=== PATIENT | male | born 1960 | race Two or more races ===

== ENCOUNTER 2018-02-20 10:31 | Outpatient (CLI) | payer OTHER ==
[~2018-02-20 10:31] MED LIST: COLESTID1 G; [UNRECOGNIZED DRUG - OTHER]; [UNRECOGNIZED DRUG - OTHER]; [UNRECOGNIZED DRUG - REMARK]
== END 2018-02-20 10:40 | disposition home or self-care (01) ==
LOC: MRI 10:31
DX: D37.5 Neoplasm of uncertain behavior of rectum (principal); R19.4 Change in bowel habit; R19.5 Other fecal abnormalities; K80.11 Calculus of gallbladder with chronic cholecystitis with obstruction
CPT/HCPCS: 72197

== ENCOUNTER 2018-03-15 05:35 | Day surgery (SDC) | payer OTHER ==
[2018-03-15] MEDS ORDERED: PERCOCET 5-3251 EACH PO (08:52)
[2018-03-15] MEDS ORDERED: DIBUCAINE30 GM TOP (08:53)
== END 2018-03-15 17:05 | disposition home or self-care (01) ==
LOC: CIR.AMB 05:35
DX: D01.2 Carcinoma in situ of rectum (principal)

== ENCOUNTER 2018-07-26 07:15 | Outpatient (CLI) | payer OTHER ==
[~2018-07-26 07:15] MED LIST changes: +DIBUCAINE30 GM TOP; +PERCOCET 5-3251 EACH PO
== END 2018-07-26 07:28 | disposition home or self-care (01) ==
LOC: LAB 07:15
DX: D37.5 Neoplasm of uncertain behavior of rectum (principal); R19.4 Change in bowel habit; R19.5 Other fecal abnormalities; K50.118 Crohn's disease of large intestine with other complication; D01.2 Carcinoma in situ of rectum

== ENCOUNTER 2018-07-26 07:47 | Outpatient (CLI) | payer OTHER | END 2018-07-26 08:05 | disposition home or self-care (01) | LOC: RAD 07:47 | DX: D37.5 Neoplasm of uncertain behavior of rectum (principal); R19.4 Change in bowel habit; R19.5 Other fecal abnormalities; K50.118 Crohn's disease of large intestine with other complication; D01.2 Carcinoma in situ of rectum ==

== ENCOUNTER 2018-08-22 08:15 | Inpatient (IN) | payer OTHER ==
[~2018-08-22] VITALS: Ht 180.3 cm; Wt 72.6 kg
[2018-08-22] MEDS ORDERED: PAXIL PO (10:20)
[2018-08-22] MEDS ORDERED: PROSOM PO (10:21)
[2018-08-22] MEDS ORDERED: XANAX0.25 MG PO (10:21)
[2018-08-31] MEDS ORDERED: PERCOCET 5-3251 EACH PO (07:48)
[2018-08-31] MEDS ORDERED: HYOSCYAMINE0.125 M1 SL (07:48)
[2018-08-31] MEDS ORDERED: IMODIUM A-D2 M2 PO (07:48)
[2018-08-31] MEDS ORDERED: PROTONIX40 MG PO (07:49)
[2018-08-31] MEDS ORDERED: Intestinex CAP PO (07:49)
== END 2018-08-31 17:00 | disposition home or self-care (01) | DRG 330 ==
LOC: ADM 08:15 → EDSTATUS 08:15 → SURH 08-27 07:00 → O/R 08-27 09:48 → SURH 08-27 09:48
PROVIDERS: Urology; ADMIT Surgery
PROC: 0DTQ0ZZ Resection of Anus, Open Approach (ICD-10-PCS; 2018-08-27)
PROC: 07TC0ZZ Resection of Pelvis Lymphatic, Open Approach (ICD-10-PCS; 2018-08-27)
PROC: 0D1B0Z4 Bypass Ileum to Cutaneous, Open Approach (ICD-10-PCS; 2018-08-27)
PROC: 0DJD8ZZ Inspection of Lower Intestinal Tract, Via Natural or Artificial Opening Endoscopic (ICD-10-PCS; 2018-08-27)
PROC: 0DTN0ZZ Resection of Sigmoid Colon, Open Approach (ICD-10-PCS; principal; 2018-08-27 07:00)
PROC: 0DTP0ZZ Resection of Rectum, Open Approach (ICD-10-PCS; 2018-08-27 07:00)
DX: C20 Malignant neoplasm of rectum (principal); N39.0 Urinary tract infection, site not specified; R31.0 Gross hematuria; J06.9 Acute upper respiratory infection, unspecified; G80.8 Other cerebral palsy

== ENCOUNTER 2018-09-11 09:54 | Emergency (ER) | payer OTHER ==
[~2018-09-11] VITALS: Ht 182.9 cm; Wt 72.6 kg
[~2018-09-11 09:54] MED LIST changes: +HYOSCYAMINE0.125 M1 SL; +IMODIUM A-D2 M2 PO; +Intestinex CAP PO; +PAXIL PO; +PROSOM PO; +PROTONIX40 MG PO; +XANAX0.25 MG PO
[2018-09-11] MEDS ORDERED: PAXIL20 MG PO (10:17)
[2018-09-11] MEDS ORDERED: ESTAZOLAM2 MG (10:17)
== END 2018-09-11 17:05 | disposition home or self-care (01) ==
LOC: ER 09:54
DX: R53.1 Weakness (principal)

== ENCOUNTER 2019-02-19 09:04 | Outpatient (CLI) | payer OTHER ==
[~2019-02-19 09:04] MED LIST changes: +ESTAZOLAM2 MG; +PAXIL20 MG PO
== END 2019-02-19 13:04 | disposition home or self-care (01) ==
LOC: SONOGRAMA 09:04
DX: C20 Malignant neoplasm of rectum (principal); R94.5 Abnormal results of liver function studies

== ENCOUNTER 2023-06-30 05:15 | Day surgery (SDC) | payer OTHER ==
[2023-06-23 11:57] LABS: URINE APPEARANCE Clear; URINE BILIRRUBIN Negative (NEGATIVE); URINE BLOOD Negative; URINE COLOR Yellow; URINE GLUCOSE Negative (NEGATIVE); URINE LEUKOCYTE Negative; URINE NITRATE Negative; URINE PROTEIN 30 (NEGATIVE)
[2023-06-23 12:00] LABS: URINE BACTERIA 11.3 uL (0.0-1933); URINE RBC 6.4 uL (0.0-20.8)
[2023-06-23 12:24] LABS: HEMATOCRIT 39.5 % (39.0-48.0); MEAN CELL VOLUME 92.1 fL (80.0-100.00); MEAN CORPUSCULAR HEMOGLOBIN 32.6 pg (27.00-32.0); MEAN CORPUSCULAR HGB CONC 35.4 g/dl (32.0-36.0); PLATELET COUNT 193 K/uL (150-450); RED BLOOD COUNT 4.29 M/uL (4.00-6.00); RED CELL DISTRIBUTION WIDTH 14.2 % (11.5-14.5)
[2023-06-23 12:33] LABS: URINE EPITHELIAL CELLS 1.3 uL (0.0-38.8)
[2023-06-23 12:48] LABS: INR 0.98; PARTIAL THROMBOPLASTIN TIME 27.1 SECONDS (22.0-34.0); PROTHROMBIN TIME 10.3 SECONDS (9.0-11.5)
[2023-06-23 12:51] LABS: CALCIUM 9.1 mg/dL (8.5-10.1); CREATININE SERUM 0.88 mg/dL (0.70-1.30); GFR 88.33; POTASSIUM 4.7 mEq/L (3.5-5.1)
[~2023-06-30] VITALS: Ht 180.3 cm; Wt 82.1 kg
[~2023-06-30 05:15] MED LIST changes: +ACTOS45 MG PO; +CLONAZEPAM0.5 MG PO; +COZAAR25 MG PO; +PAROXETINE CR25 MG PO; +ROSUVASTATIN CAL5 MG PO; +SYNTHROID75 MCG PO; +URSO FORTE500 MG PO
== END 2023-06-30 14:25 | disposition home or self-care (01) ==
LOC: CIR.AMB 05:15
PROVIDERS: ATTEND Urology
DX: N43.3 Hydrocele, unspecified (principal); I10 Essential (primary) hypertension; Z20.822 Contact with and (suspected) exposure to COVID-19

== ENCOUNTER 2024-04-10 10:11 | Inpatient (IN) | payer OTHER ==
[~2024-04-10] VITALS: Ht 180.3 cm; Wt 75.7 kg
[2024-04-10] MEDS ORDERED: ATIVAN0.5 M1 (10:18)
[2024-04-10] MEDS ORDERED: VAZALORE81 MG (10:18)
--- NOTE | 2024-04-10 10:19 | NUR ---
PTE ALERTA Y ORIENTADO X3 SE RECIBE EN AMBULANCIA QUE REFEIRE DOLOR ABDOMINAL DESDE EMELY. PTE TIENE COLOSTOMIA EN LADO KAMILAH, PTE DE DR RAUDEL KAM. SE LE DANA S/V Y SE UBICA
[2024-04-10] MEDS ORDERED: RINGERS SOLUTION,LACTATED 1,000 ML IV STA (10:52)
[2024-04-10] MEDS ORDERED: MEPERIDINE HCL/PF 50 MG/ML VIAL IM STA (10:53)
[2024-04-10] MEDS ORDERED: PROMETHAZINE HCL 50 MG/ML AMPUL IM STA (10:54)
[2024-04-10 11:24] LABS: HEMATOCRIT 45.1 % (39.0-48.0); HEMOGLOBIN 15.4 g/dL (13-16.00); MEAN CELL VOLUME 90.7 fL (80.0-100.00); MEAN CORPUSCULAR HEMOGLOBIN 30.9 pg (27.00-32.0); PLATELET COUNT 152 K/uL (150-450); RED BLOOD COUNT 4.98 M/uL (4.00-6.00); RED CELL DISTRIBUTION WIDTH 13.3 % (11.5-14.5)
--- NOTE | 2024-04-10 11:31 | NUR ---
PTE ALERTA Y ORIENTADO X3 RN JOSE LE ORIENTA SOBRE TX MEDICO LO CUAL REFIERE ENTENDER Y ACEPTAR SE LE REALIZAN MUESTRAS DE LAB [facility] MEDIDAS ASEPTICA Y SE LE ADMINSITRA MEDICAMENTOS MARIAELENA ORDEN MEDICA
[2024-04-10 11:32] LABS: ERYTHROCYTE SEDIMENTATION RATE 23 mm/hr
[2024-04-10 11:48] LABS: INR 1.07; PARTIAL THROMBOPLASTIN TIME 26.4 SECONDS (22.0-34.0); PROTHROMBIN TIME 11.6 SECONDS (9.0-11.5)
[2024-04-10 11:55] LABS: ALBUMIN 4.1 gm/dL (3.4-5.0); BILIRUBIN TOTAL 0.77 mg/dL (0.3-1.2); BILIRUBIN,CONJUGATED 0.18 mg/dL (0.0-0.2); BILIRUBIN,UNCONJUGATED 0.59 mg/dL (0.0-0.6); TOTAL PROTEIN 7.8 gm/dL (6.4-8.2)
[2024-04-10 12:23] LABS: PH,URINE 5.5 (5.0-8.0); URINE APPEARANCE Clear; URINE BILIRRUBIN Small (NEGATIVE); URINE BLOOD Negative; URINE COLOR Dark Yellow; URINE GLUCOSE Negative (NEGATIVE); URINE KETONE Trace (NEGATIVE); URINE LEUKOCYTE Negative; URINE NITRATE Negative; URINE PROTEIN 30 (NEGATIVE)
[2024-04-10 12:24] LABS: URINE EPITHELIAL CELLS 2.6 uL (0.0-38.8); URINE RBC 29.9 uL (0.0-20.8)
[2024-04-10 12:34] LABS: URINE BACTERIA 3.7 uL (0.0-1933); URINE CAST 1.06 uL (0.0-1.40)
[2024-04-10 12:56] LABS: CALCIUM 10.7 mg/dL (8.5-10.1); CREATININE SERUM 1.01 mg/dL (0.70-1.30); GFR 75.1; POTASSIUM 4.46 mEq/L (3.5-5.1)
[2024-04-10] MEDS ORDERED: METRONIDAZOLE/SODIUM CHLORIDE 500 MG/100 ML PIGGYBACK IV ONE (16:45)
[2024-04-10] MEDS ORDERED: CIPROFLOXACIN IN 5 % DEXTROSE 400 MG/200 ML PIGGYBAG IV ONE (16:45)
[2024-04-10] MEDS ORDERED: ONDANSETRON HCL 4 MG in 0.9 % SODIUM CHLORIDE 50 ML IV PRN (19:30)
[2024-04-10] MEDS ORDERED: ACETAMINOPHEN 500 MG GEL..CAP PO PRN (19:30)
[2024-04-10] MEDS ORDERED: 0.9 % SODIUM CHLORIDE 1,000 ML IV SCH (19:30)
[2024-04-10] MEDS ORDERED: PROMETHAZINE HCL 25 MG/ML AMPUL IM ONE (19:45)
[2024-04-10] MEDS ORDERED: MEPERIDINE HCL/PF 25 MG/ML VIAL IM ONE (19:45)
[2024-04-10] MEDS ORDERED: MEPERIDINE HCL/PF 25 MG/ML VIAL IM PRN (19:45)
[2024-04-10] MEDS ORDERED: hydrALAZINE HCL 20 MG VIAL IV PRN (22:45)
[2024-04-11] MEDS ORDERED: PIPERACILLIN/TAZOBACTAM SODIUM 3.375 GM in DEXTROSE 5 % IN WATER 100 ML IV SCH
[2024-04-11 00:17] VITALS: BP 117/64; O2SAT 96
[2024-04-11 07:45] LABS: INR 1.05; PARTIAL THROMBOPLASTIN TIME 27.3 SECONDS (22.0-34.0); PROTHROMBIN TIME 11.4 SECONDS (9.0-11.5)
[2024-04-11 08:00] VITALS: BP 141/73; O2SAT 98
[2024-04-11] MEDS ORDERED: FAMOTIDINE/PF 20 MG in 0.9 % SODIUM CHLORIDE 8 ML IV PUSH SCH (09:00)
[2024-04-11] MEDS ORDERED: ENOXAPARIN SODIUM 40 MG/0.4 ML SYRINGE SUBCUTANEO SCH (09:00)
[2024-04-11 18:09] VITALS: BP 175/98; O2SAT 98
[2024-04-12 01:26] VITALS: BP 148/92; O2SAT 97
[2024-04-12 06:45] LABS: HEMATOCRIT 39.6 % (39.0-48.0); HEMOGLOBIN 13.5 g/dL (13-16.00); MEAN CELL VOLUME 90.6 fL (80.0-100.00); MEAN CORPUSCULAR HEMOGLOBIN 30.8 pg (27.00-32.0); PLATELET COUNT 134 K/uL (150-450); RED BLOOD COUNT 4.37 M/uL (4.00-6.00); RED CELL DISTRIBUTION WIDTH 13.4 % (11.5-14.5)
[2024-04-12 07:28] LABS: ALBUMIN 3.3 gm/dL (3.4-5.0); BILIRUBIN TOTAL 0.85 mg/dL (0.3-1.2); CALCIUM 9.3 mg/dL (8.5-10.1); CREATININE SERUM 0.81 mg/dL (0.70-1.30); GFR 96.88; GLOBULINA 2.6 G/DL (2.4-3.5); MAGNESIUM 1.8 mg/dL (1.8-2.4); PHOSPHOROUS 3.1 mg/dL (2.5-4.9); POTASSIUM 3.94 mEq/L (3.5-5.1); TOTAL PROTEIN 5.9 gm/dL (6.4-8.2)
[2024-04-12 07:29] LABS: C-REACTIVE PROTEIN 2.79 MG/DL (0.00-0.29)
[2024-04-12 08:03] VITALS: BP 147/72; O2SAT 99
[2024-04-12 16:13] VITALS: BP 148/87; O2SAT 99
[2024-04-13 01:00] VITALS: BP 143/75; O2SAT 98
[2024-04-13 08:20] VITALS: BP 154/81; O2SAT 98
[2024-04-13 18:13] VITALS: BP 156/88; O2SAT 99
[2024-04-14] VITALS: BP 133/84; O2SAT 98
[2024-04-14 08:13] VITALS: BP 159/84; O2SAT 98
[2024-04-14 08:37] LABS: ALBUMIN 3.5 gm/dL (3.4-5.0); CALCIUM 9.2 mg/dL (8.5-10.1); CREATININE SERUM 0.91 mg/dL (0.70-1.30); GFR 84.7; MAGNESIUM 1.9 mg/dL (1.8-2.4); PHOSPHOROUS 3.1 mg/dL (2.5-4.9); POTASSIUM 4.09 mEq/L (3.5-5.1)
[2024-04-14 08:40] LABS: HEMATOCRIT 39.2 % (39.0-48.0); HEMOGLOBIN 13.2 g/dL (13-16.00); MEAN CELL VOLUME 90.6 fL (80.0-100.00); MEAN CORPUSCULAR HEMOGLOBIN 30.5 pg (27.00-32.0); MEAN CORPUSCULAR HGB CONC 33.7 g/dl (32.0-36.0); PLATELET COUNT 159 K/uL (150-450); RED BLOOD COUNT 4.33 M/uL (4.00-6.00); RED CELL DISTRIBUTION WIDTH 13.2 % (11.5-14.5)
[2024-04-14 15:51] VITALS: BP 154/94; O2SAT 100
== END 2024-04-14 17:07 | disposition home or self-care (01) | DRG 389 ==
LOC: ER 10:11 → SURG 19:39
PROVIDERS: General Practice; Internal Medicine; Internal Medicine Infectious Disease; ADMIT Internal Medicine; ATTEND Internal Medicine
PROC: BW21YZZ Computerized Tomography (CT Scan) of Abdomen and Pelvis using Other Contrast (ICD-10-PCS; principal; 2024-04-10)
DX: K56.600 Partial intestinal obstruction, unspecified as to cause (principal); K50.90 Crohn's disease, unspecified, without complications; I10 Essential (primary) hypertension; E03.9 Hypothyroidism, unspecified; E78.5 Hyperlipidemia, unspecified; Z85.038 Personal history of other malignant neoplasm of large intestine

== ENCOUNTER 2024-08-10 03:17 | Emergency (ER) | payer OTHER ==
[~2024-08-10] VITALS: Ht 182.9 cm; Wt 68.0 kg
[~2024-08-10 03:17] MED LIST changes: +ATIVAN0.5 M1; +VAZALORE81 MG
[2024-08-10] MEDS ORDERED: 0.9 % SODIUM CHLORIDE 500 ML IV STA (03:50)
[2024-08-10] MEDS ORDERED: FAMOTIDINE/PF 20 MG/2 ML VIAL IV PUSH STA (03:51)
[2024-08-10] MEDS ORDERED: HYOSCYAMINE SULFATE 0.125 MG TAB.SUBL SL STA (03:51)
[2024-08-10] MEDS ORDERED: METOCLOPRAMIDE HCL 5 MG/ML VIAL IM STA (03:52)
[2024-08-10] MEDS ORDERED: PROMETHAZINE HCL 25 MG/ML AMPUL IM STA (03:52)
[2024-08-10] MEDS ORDERED: HYOSCYAMINE SULFATE 0.125 MG TAB.SUBL ONE (03:59)
[2024-08-10] MEDS ORDERED: PROMETHAZINE HCL 50 MG/ML AMPUL IM ONE (03:59)
[2024-08-10] MEDS ORDERED: FAMOTIDINE/PF 20 MG/2 ML VIAL ONE (03:59)
[2024-08-10] MEDS ORDERED: METOCLOPRAMIDE HCL 5 MG/ML VIAL ONE (03:59)
== END 2024-08-10 08:37 | disposition home or self-care (01) ==
LOC: ER 03:17
DX: K29.70 Gastritis, unspecified, without bleeding (principal); R11.10 Vomiting, unspecified; E11.9 Type 2 diabetes mellitus without complications
CPT/HCPCS: 96365; 96366; 96372; 99282; J2765; J3490 ×2; J7042